=== PATIENT | female | born 1940 | race Caucasian/White ===

== ENCOUNTER 2022-07-21 09:15 | Inpatient (IN) | payer OTHER ==
[~2022-07-21] VITALS: Ht 121.9 cm; Wt 54.4 kg
[2022-07-21] MEDS ORDERED: COZAAR100 MG PO (13:47)
[2022-07-21] MEDS ORDERED: NORVASC5 MG PO (13:48)
[2022-07-21] MEDS ORDERED: LIPITOR20 MG PO (13:48)
[2022-07-21] MEDS ORDERED: METFORMIN HCL500 M3 PO (13:48)
[2022-07-27] MEDS ORDERED: DORZOLAMIDE-TIM10 ML (13:08)
[2022-07-27] MEDS ORDERED: LATANOPROST2.5 ML (13:08)
[2022-07-27] MEDS ORDERED: CENTRUM SILVER1 EAC3 (13:08)
[2022-07-27] MEDS ORDERED: CALTRATE 600+D1 EAC1 (13:08)
[2022-07-27] MEDS ORDERED: ATORVASTATIN CA10 MG (13:08)
[2022-07-27] MEDS ORDERED: ADVIL200 MG (13:08)
[2022-07-27] MEDS ORDERED: GABAPENTIN100 M2 (13:09)
[2022-07-27] MEDS ORDERED: VOLTAREN ARTHRI20 GM (13:09)
[2022-07-27] MEDS ORDERED: DOXAZOSIN MESYLA4 MG (13:09)
[2022-07-27] MEDS ORDERED: LOSARTAN-HCTZ1 EAC2 (13:09)
[2022-07-27] MEDS ORDERED: TUMS300 MG (13:09)
[2022-07-27] MEDS ORDERED: FUROSEMIDE20 MG (13:09)
[2022-07-29] MEDS ORDERED: PERCOCET 10-321 EACH PO (11:20)
== END 2022-07-29 13:05 | disposition home or self-care (01) | DRG 331 ==
LOC: SURH 07-27 08:29 → O/R 07-27 08:29 → SURG 07-27 09:15 → SURH 07-27 14:03 → SURG 07-27 16:15 → SURH 07-29 13:05
PROVIDERS: ADMIT Colon & Rectal Surgery; ATTEND Colon & Rectal Surgery
PROC: 0DBP7ZZ Excision of Rectum, Via Natural or Artificial Opening (ICD-10-PCS; 2022-07-27)
PROC: 0DUR07Z Supplement Anal Sphincter with Autologous Tissue Substitute, Open Approach (ICD-10-PCS; 2022-07-27)
PROC: 0DJD8ZZ Inspection of Lower Intestinal Tract, Via Natural or Artificial Opening Endoscopic (ICD-10-PCS; 2022-07-27)
PROC: 0JQC0ZZ Repair Pelvic Region Subcutaneous Tissue and Fascia, Open Approach (ICD-10-PCS; principal; 2022-07-27 16:15)
DX: K62.3 Rectal prolapse (principal); R15.9 Full incontinence of feces; N81.6 Rectocele

== ENCOUNTER 2023-09-20 10:15 | Inpatient (IN) | payer OTHER ==
[~2023-09-20] VITALS: Ht 121.9 cm; Wt 48.1 kg
[~2023-09-20 10:15] MED LIST: ADVIL200 MG; ATORVASTATIN CA10 MG; CALTRATE 600+D1 EAC1; CENTRUM SILVER1 EAC3; COZAAR100 MG PO; DORZOLAMIDE-TIM10 ML; DOXAZOSIN MESYLA4 MG; FUROSEMIDE20 MG; GABAPENTIN100 M2; LATANOPROST2.5 ML; LIPITOR20 MG PO; LOSARTAN-HCTZ1 EAC2; METFORMIN HCL500 M3 PO; NORVASC5 MG PO; PERCOCET 10-321 EACH PO; TUMS300 MG; VOLTAREN ARTHRI20 GM
[2023-09-27] MEDS ORDERED: LIDOCAINE HCL/EPINEPHRINE 50ML VIAL IJ ONE (11:07)
[2023-09-27] MEDS ORDERED: BUPIVACAINE HCL/PF 0.5% 30ML ML ONE (11:07)
[2023-09-27] MEDS ORDERED: POVIDONE-IODINE 118 ML BOTT TOP ONE ×2 (11:07→12:30)
[2023-09-27] MEDS ORDERED: METRONIDAZOLE/SODIUM CHLORIDE 500 MG/100 ML PIGGYBACK IV ONE ×2 (11:13→12:30)
[2023-09-27] MEDS ORDERED: CEFTRIAXONE SODIUM 2,000 MG VIAL ONE (11:13)
[2023-09-27] MEDS ORDERED: BUPIVACAINE HCL 30 ML VIAL IJ ONE (12:30)
[2023-09-27] MEDS ORDERED: CEFTRIAXONE SODIUM 2,000 MG VIAL IV ONE (12:30)
[2023-09-27] MEDS ORDERED: LIDOCAINE HCL/EPINEPHRINE 10MG/ML 1% 50ML IJ ONE (12:30)
[2023-09-27] MEDS ORDERED: HEMOSTATIC MATRIX 1 KIT KIT TOP ONE (12:50)
[2023-09-27] MEDS ORDERED: DIBUCAINE 30 GM TUBE ONE (12:50)
[2023-09-27] MEDS ORDERED: 0.9 % SODIUM CHLORIDE 1,000 ML IV SCH (15:15)
[2023-09-27] MEDS ORDERED: OxyCODONE HCL 5 MG TABLET (ROXICODONE) PO PRN (15:15)
[2023-09-27] MEDS ORDERED: MORPHINE SULFATE 4 MG/ML CARTRIDGE IV PRN (15:15)
[2023-09-27] MEDS ORDERED: ONDANSETRON HCL 2 MG/ML VIAL IV PRN (15:15)
[2023-09-27] MEDS ORDERED: HYOSCYAMINE SULFATE 0.125 MG TAB.SUBL ONE (16:30)
[2023-09-27] MEDS ORDERED: SIMETHICONE 125 MG CAPSULE PO ONE (16:30)
[2023-09-27] MEDS ORDERED: GABAPENTIN 300 MG CAPSULE PO ONE (16:30)
[2023-09-27] MEDS ORDERED: METOCLOPRAMIDE HCL 5 MG/ML VIAL ONE (16:31)
[2023-09-27] MEDS ORDERED: CELECOXIB 200 MG CAPSULE PO SCH (17:00)
[2023-09-27] MEDS ORDERED: POLYETHYLENE GLYCOL 3350 17 GM BLIST.PACK PO SCH (17:00)
[2023-09-27] MEDS ORDERED: GABAPENTIN 300 MG CAPSULE PO SCH (17:00)
[2023-09-27] MEDS ORDERED: HYOSCYAMINE SULFATE 0.125 MG TAB.SUBL SL SCH (17:00)
[2023-09-27] MEDS ORDERED: METOCLOPRAMIDE HCL 5 MG/ML VIAL IV SCH (17:00)
[2023-09-27] MEDS ORDERED: SIMETHICONE 125 MG CAPSULE PO SCH (17:00)
[2023-09-27 18:15] LABS: HEMATOCRIT 41.9 % (36.0-45.00); HEMOGLOBIN 14.7 g/dL (12.0-15.00); MEAN CELL VOLUME 87.5 fL (80.00-100.00); MEAN CORPUSCULAR HEMOGLOBIN 30.7 pg (27.00-32.0); MEAN CORPUSCULAR HGB CONC 35.1 g/dl (32.0-36.0); PLATELET COUNT 291 K/uL (150-450); RED BLOOD COUNT 4.79 M/uL (4.00-6.00); RED CELL DISTRIBUTION WIDTH 12.9 % (11.5-14.5)
[2023-09-27] MEDS ORDERED: ACETAMINOPHEN 500 MG GEL..CAP PO SCH (20:00)
[2023-09-27] MEDS ORDERED: FAMOTIDINE/PF 20 MG/2 ML VIAL IV PUSH SCH (21:00)
[2023-09-28 06:53] LABS: HEMATOCRIT 33.4 % (36.0-45.00); HEMOGLOBIN 11.8 g/dL (12.0-15.00); MEAN CELL VOLUME 87.5 fL (80.00-100.00); MEAN CORPUSCULAR HGB CONC 35.4 g/dl (32.0-36.0); PLATELET COUNT 263 K/uL (150-450); RED BLOOD COUNT 3.82 M/uL (4.00-6.00)
[2023-09-28 07:32] LABS: CALCIUM 8.3 mg/dL (8.5-10.1); CREATININE SERUM 0.47 mg/dL (0.55-1.02); GFR 127.5; MAGNESIUM 1.5 mg/dL (1.8-2.4); PHOSPHOROUS 3.3 mg/dL (2.5-4.9); POTASSIUM 3.93 mEq/L (3.5-5.1)
[2023-09-28] MEDS ORDERED: LACTOBACILLUS ACIDOPHILUS 1 CAP CAP PO SCH (09:00)
[2023-09-28] MEDS ORDERED: LACTULOSE 20 G/30 ML BLIST.PACK PO SCH (09:00)
[2023-09-28] MEDS ORDERED: AMLODIPINE BESYLATE 5 MG TABLET PO SCH (11:46)
[2023-09-28] MEDS ORDERED: DEXTROSE 50 % IN WATER 0.5 G/ML DISP.SYRIN IV PRN (12:00)
[2023-09-28] MEDS ORDERED: INSULIN LISPRO 1,000 UNIT/10 ML UNITS SUBCUTANEO PRN (12:00)
[2023-09-28] MEDS ORDERED: ENOXAPARIN SODIUM 40 MG/0.4 ML SYRINGE SUBCUTANEO SCH (17:00)
[2023-09-29] MEDS ORDERED: ENOXAPARIN SODIUM 40 MG/0.4 ML SYRINGE SUBCUTANEO SCH (09:00)
== END 2023-09-29 12:30 | disposition home or self-care (01) | DRG 348 ==
LOC: SURH 09-27 08:51 → O/R 09-27 08:51 → SURH 09-27 10:45
PROVIDERS: ADMIT Colon & Rectal Surgery; ATTEND Colon & Rectal Surgery
PROC: 0DUR0JZ Supplement Anal Sphincter with Synthetic Substitute, Open Approach (ICD-10-PCS; 2023-09-27)
PROC: 0DJD8ZZ Inspection of Lower Intestinal Tract, Via Natural or Artificial Opening Endoscopic (ICD-10-PCS; 2023-09-27)
PROC: 0DBP7ZZ Excision of Rectum, Via Natural or Artificial Opening (ICD-10-PCS; principal; 2023-09-27 10:45)
DX: K62.3 Rectal prolapse (principal); K92.1 Melena; R15.9 Full incontinence of feces; R59.0 Localized enlarged lymph nodes

== ENCOUNTER 2024-10-31 10:00 | Inpatient (IN) | payer OTHER ==
[~2024-10-31] VITALS: Ht 121.9 cm; Wt 47.2 kg
[2024-10-31] MEDS ORDERED: TOPROL XL100 M1 PO (14:54)
[2024-10-31 14:59] VITALS: BP 150/75
[2024-11-06] MEDS ORDERED: LIDOCAINE HCL 1%/EPINEPHRINE 20ML VIAL IJ ONE (08:48)
[2024-11-06] MEDS ORDERED: BUPIVACAINE HCL/Mpf 0.5% 10ML VIAL ONE (08:48)
[2024-11-06] MEDS ORDERED: CEFTRIAXONE SODIUM 2,000 MG VIAL ONE (08:48)
[2024-11-06] MEDS ORDERED: METRONIDAZOLE/SODIUM CHLORIDE 500 MG/100 ML PIGGYBACK IV ONE (08:50)
[2024-11-06] MEDS ORDERED: ENALAPRILAT DIHYDRATE 1.25 MG/ML VIAL IV ONE (10:25)
[2024-11-06] MEDS ORDERED: OxyCODONE HCL 5 MG TABLET (ROXICODONE) PO PRN (11:00)
[2024-11-06] MEDS ORDERED: MORPHINE SULFATE 4 MG/ML CARTRIDGE IV PRN (11:00)
[2024-11-06] MEDS ORDERED: ONDANSETRON HCL 2 MG/ML VIAL IV PRN (11:00)
[2024-11-06] MEDS ORDERED: 0.9 % SODIUM CHLORIDE 1,000 ML IV SCH (11:00)
[2024-11-06] MEDS ORDERED: MORPHINE SULFATE 2 MG/ML CARTRIDGE IV ONE (11:35)
[2024-11-06] MEDS ORDERED: SIMETHICONE 125 MG CAPSULE PO SCH (13:00)
[2024-11-06] MEDS ORDERED: HYOSCYAMINE SULFATE 0.125 MG TAB.SUBL SL SCH (13:00)
[2024-11-06 14:00] VITALS: BP 146/67; O2SAT 95
[2024-11-06] MEDS ORDERED: ACETAMINOPHEN 500 MG GEL..CAP PO SCH (14:00)
[2024-11-06] MEDS ORDERED: INSULIN LISPRO 1,000 UNIT/10 ML UNITS SUBCUTANEO PRN (15:15)
[2024-11-06] MEDS ORDERED: hydrALAZINE HCL 20 MG VIAL IV PRN (15:15)
[2024-11-06] MEDS ORDERED: DEXTROSE 50 % IN WATER 0.5 G/ML VIAL IV PRN (15:15)
[2024-11-06 15:29] LABS: BASO % 0.2 % (0.1-1.2); EOS # 0.06 (0.04-0.54); EOS % 0.5 % (0.7-7.0); HEMATOCRIT 32.1 % (34.1-44.9); HEMOGLOBIN 11.2 g/dL (11.2-15.7); LYMPH % 5.3 % (19.3-53.1); MEAN CORPUSCULAR HEMOGLOBIN 29.2 pg (25.6-32.2); MONO # 0.71 (0.24-0.82); MONO % 5.4 % (4.7-12.5); NEUT # 11.55 (1.56-6.13); NEUT % 88.2 % (34.0-71.1); PLATELET COUNT 308 K/uL (163-369); RED BLOOD COUNT 3.84 M/uL (3.93-5.22); RED CELL DISTRIBUTION WIDTH 11.9 % (11.6-14.4)
[2024-11-06 16:45] VITALS: BP 132/66; O2SAT 96
[2024-11-06] MEDS ORDERED: POLYETHYLENE GLYCOL 3350 17 GM BLIST.PACK PO SCH (17:00)
[2024-11-06] MEDS ORDERED: GABAPENTIN 300 MG CAPSULE PO SCH (17:00)
[2024-11-06] MEDS ORDERED: CELECOXIB 200 MG CAPSULE PO SCH (17:00)
[2024-11-06] MEDS ORDERED: METOCLOPRAMIDE HCL 5 MG/ML VIAL IV SCH (17:00)
[2024-11-06] MEDS ORDERED: FAMOTIDINE/PF 20 MG/2 ML VIAL IV PUSH SCH (21:00)
[2024-11-07 00:46] VITALS: BP 107/60; O2SAT 95
[2024-11-07 07:29] LABS: BASO % 0.4 % (0.1-1.2); EOS # 0.42 (0.04-0.54); EOS % 5.1 % (0.7-7.0); HEMATOCRIT 29.6 % (34.1-44.9); HEMOGLOBIN 10.4 g/dL (11.2-15.7); LYMPH # 1.67 (1.18-3.74); LYMPH % 20.1 % (19.3-53.1); MEAN CORPUSCULAR HEMOGLOBIN 29.8 pg (25.6-32.2); MONO # 0.71 (0.24-0.82); MONO % 8.5 % (4.7-12.5); NEUT # 5.45 (1.56-6.13); NEUT % 65.5 % (34.0-71.1); PLATELET COUNT 251 K/uL (163-369); RED BLOOD COUNT 3.49 M/uL (3.93-5.22); RED CELL DISTRIBUTION WIDTH 12.2 % (11.6-14.4)
[2024-11-07 08:00] VITALS: BP 134/65; O2SAT 98
[2024-11-07 08:21] LABS: ALBUMIN 2.6 gm/dL (3.4-5.0); CALCIUM 7.7 mg/dL (8.5-10.1); CREATININE SERUM 0.7 mg/dL (0.55-1.02); GFR 80.11; PHOSPHOROUS 3.4 mg/dL (2.5-4.9); POTASSIUM 3.13 mEq/L (3.5-5.1)
[2024-11-07] MEDS ORDERED: METOPROLOL SUCCINATE 50 MG TAB.SR.24H PO SCH (09:00)
[2024-11-07] MEDS ORDERED: AMLODIPINE BESYLATE 5 MG TABLET PO SCH (09:00)
[2024-11-07] MEDS ORDERED: LACTOBACILLUS ACIDOPHILUS 1 CAP CAP PO SCH (09:00)
[2024-11-07] MEDS ORDERED: LACTULOSE 20 G/30 ML BLIST.PACK PO SCH (09:00)
[2024-11-07] MEDS ORDERED: LOSARTAN POTASSIUM 100 MG TABLET PO SCH (09:00)
[2024-11-07] MEDS ORDERED: SOD FERRIC GLUC COMPLX/SUCROSE 62.5 MG in 0.9 % SODIUM CHLORIDE 50 ML IV SCH (09:00)
[2024-11-07] MEDS ORDERED: Cyanocobalamin/Mecobalamin 1 TAB.SL SL SCH (09:00)
[2024-11-07 09:12] LABS: MAGNESIUM 1.3 mg/dL (1.8-2.4)
[2024-11-07] MEDS ORDERED: POTASSIUM CHLORIDE 20MEQ/100ML H2O PB IV ONE (09:15)
[2024-11-07] MEDS ORDERED: MAGNESIUM SULFATE IN WATER 50 ML IV NR (09:15)
[2024-11-07] MEDS ORDERED: POTASSIUM CHLORIDE 8 MEQ TABLET PO NR (09:35)
[2024-11-07] MEDS ORDERED: ATORVASTATIN CALCIUM 10 MG TABLET PO SCH (17:00)
[2024-11-07] MEDS ORDERED: ENOXAPARIN SODIUM 40 MG/0.4 ML SYRINGE SUBCUTANEO SCH (17:00)
[2024-11-08] MEDS ORDERED: ENOXAPARIN SODIUM 40 MG/0.4 ML SYRINGE SUBCUTANEO SCH (09:00)
== END 2024-11-07 12:29 | disposition home or self-care (01) | DRG 330 ==
LOC: O/R 11-06 06:19 → SURG 11-06 06:19 → SURH 11-06 10:00 → SURG 11-06 13:16
PROVIDERS: ADMIT Colon & Rectal Surgery; ATTEND Colon & Rectal Surgery
PROC: 0DQP4ZZ Repair Rectum, Percutaneous Endoscopic Approach (ICD-10-PCS; principal; 2024-11-06 12:15)
DX: K62.3 Rectal prolapse (principal); K92.1 Melena; R15.9 Full incontinence of feces; E78.00 Pure hypercholesterolemia, unspecified; E11.9 Type 2 diabetes mellitus without complications; I10 Essential (primary) hypertension